=== PATIENT | female | born 1995 | race Caucasian/White ===

== ENCOUNTER 2017-10-19 08:41 | Inpatient (IN) | payer MEDICAID ==
[~2017-10-19] VITALS: Ht 149.9 cm; Wt 46.1 kg
[2017-10-19 09:31] LABS: BASOPHILS % (AUTO) 0.7 % (0.0-2.0); EOSINOPHILS % (AUTO) 0.1 % (1.0-6.0); HEMATOCRIT 34.2 % (36-46); HEMOGLOBIN 10.8 g/dL (12.0-16.0); LYMPHOCYTES # (AUTO) 1.9 K/uL (1.0-4.8); LYMPHOCYTES % (AUTO) 21.3 % (22.0-44.0); MEAN CORPUSCULAR HEMOGLOBIN 20.4 pg (26.0-34.0); MEAN CORPUSCULAR HGB CONC 31.6 G/dL (31.0-37.0); MEAN CORPUSCULAR VOLUME 65 fL (80-100); MONOCYTES # (AUTO) 0.5 K/uL (0.1-1.0); MONOCYTES % (AUTO) 5.5 % (2.0-9.0); NEUTROPHILS # (AUTO) 6.5 K/uL (1.8-7.7); NEUTROPHILS % (AUTO) 72.4 % (40.0-70.0); PLATELET COUNT (AUTO) 252 K/uL (150-450); RED CELL DISTRIBUTION WIDTH 17.2 % (11.5-14.5)
[2017-10-19 09:35] LABS: AMPHET/METH SCREEN,URINE NEGATIVE (NEGATIVE); BARBITURATE SCREEN, URINE NEGATIVE (NEGATIVE); BENZODIAZEPINES SCREEN,URINE NEGATIVE (NEGATIVE); CANNABINOID SCREEN,URINE POSITIVE (NEGATIVE); COCAINE SCREEN,URINE NEGATIVE (NEGATIVE); METHADONE SCREEN, URINE NEGATIVE (NEGATIVE); OPIATE SCREEN,URINE NEGATIVE (NEGATIVE)
[2017-10-19 09:41] LABS: APPEARANCE,URINE CLOUDY (CLEAR); BILIRUBIN,URINE NEGATIVE (NEGATIVE); GLUCOSE, URINE (UA) NEGATIVE (NEGATIVE); KETONES,URINE TRACE mg/dL (NEGATIVE); LEUKOCYTE ESTERASE ,URINE SMALL (NEGATIVE); NITRATE,URINE NEGATIVE (NEGATIVE); OCCULT BLOOD,URINE LARGE (NEGATIVE); PHENCYCLIDINE SCREEN,URINE NEGATIVE (NEGATIVE); PROTEIN,URINE SEE CONFIRM (NEGATIVE); UROBILINOGEN,URINE 0.2 mg/dL (<=1.0)
[2017-10-19 09:42] LABS: ANION GAP 13 mmol/L (8-16); CALCIUM, TOTAL 8.7 mg/dL (8.8-10.5); CARBON DIOXIDE 22 mmol/L (22-29); CHLORIDE 106 mmol/L (98-107); CREATININE 0.57 mg/dL (0.60-1.30); GLOMERULAR FILTR. RATE CALC > 60 mL/min (>60); GLUCOSE,RANDOM 104 mg/dL (70-110); POTASSIUM 3.8 mmol/L (3.5-5.1); SODIUM SERUM 141 mmol/L (136-145); UREA NITROGEN, BLOOD 6 mg/dL (7-18)
[2017-10-19 09:43] LABS: SULFOSALICYLIC ACID,URINE 2+ (Negative)
[2017-10-19 09:45] LABS: ALANINE AMINOTRANSFERASE 19 U/L (12-78); ALBUMIN 4.5 g/dL (3.4-5.0); ALKALINE PHOSPHATASE 67 U/L (46-116); ASPARTATE AMINOTRANSFERASE 24 U/L (15-37); BILIRUBIN,TOTAL 0.3 mg/dL (0.1-1.0); TOTAL PROTEIN, SERUM 8.4 g/dL (6.4-8.2)
[2017-10-19 09:47] LABS: BACTERIA,URINE None Seen /HPF (None Seen); RBC,URINE Full Field /HPF (0-2); SQUAMOUS EPITHELIAL CELL,UR Rare /LPF (None Seen); WBC,URINE 0-2 /HPF (0-5)
[2017-10-19] MEDS ORDERED: HALOPERIDOL 5 MG TABLET PO PRN (10:00)
[2017-10-19] MEDS ORDERED: ZOLPIDEM TARTRATE 10 MG TABLET PO PRN (10:00)
[2017-10-19] MEDS ORDERED: LORazepam 2 MG TABLET PO PRN (10:00)
[2017-10-19 10:04] LABS: PLATELET MORPHOLOGY COMMENT NORMAL; SALICYLATE 1.7 mg/dL (2.8-20.0)
[2017-10-19] MEDS ORDERED: LORazepam 2 MG/ML VIAL IM ONE (10:15)
[2017-10-19 10:45] LABS: FREE T4 (FREE THYROXINE) 1.14 ng/dL (0.76-1.46)
[2017-10-19] MEDS ORDERED: ACETYLCYSTEINE IV ONE ×4 (10:45→16:00)
[2017-10-19] MEDS ORDERED: DEXTROSE 5% IV ONE ×4 (10:45→16:00)
[2017-10-19] MEDS ORDERED: WATER IV ONE ×4 (10:45→16:00)
[2017-10-19 10:50] LABS: ACETAMINOPHEN 221 mcg/mL (10-30)
[2017-10-19] MEDS ORDERED: 0.9% SODIUM CHLORIDE 10 ML SYRINGE IVP PRN (11:45)
[2017-10-19] MEDS ORDERED: ONDANSETRON HCL 4 MG/2 ML VIAL IVP ONE (12:45)
[2017-10-19] MEDS ORDERED: MAGNESIUM HYDROXIDE SUSPENSION 30 ML UDCUP PO PRN (12:45)
[2017-10-19] MEDS ORDERED: SODIUM CHLORIDE 0.9% 1,000 ML IV ONE (12:45)
[2017-10-19] MEDS ORDERED: LORazepam 2 MG/ML VIAL IVP ONE (14:15)
[2017-10-19 20:00] VITALS: BP 122/70
[2017-10-19] MEDS ORDERED: INFLUENZA VIRUS VACCINE QVS 2017-18 (3YR+)/PF 60 MCG/0.5 ML SYRINGE IM ONE (20:15)
[2017-10-19] MEDS ORDERED: LORazepam 1 MG TABLET PO PRN (20:58)
[2017-10-19] MEDS: DOCUSATE SODIUM 100 MG CAPSULE PO SCH (21:00)
[2017-10-20] VITALS (7 sets, daily range): BP systolic 111–124; BP diastolic 67–81
[2017-10-20 08:25] LABS: ALANINE AMINOTRANSFERASE 17 U/L (12-78); ALBUMIN 3.8 g/dL (3.4-5.0); ALKALINE PHOSPHATASE 59 U/L (46-116); ASPARTATE AMINOTRANSFERASE 23 U/L (15-37); BILIRUBIN,TOTAL 0.7 mg/dL (0.1-1.0); TOTAL PROTEIN, SERUM 7.4 g/dL (6.4-8.2)
[2017-10-20 08:27] LABS: ALANINE AMINOTRANSFERASE 21 U/L (12-78); ALBUMIN 3.7 g/dL (3.4-5.0); ALKALINE PHOSPHATASE 56 U/L (46-116); ANION GAP 13 mmol/L (8-16); ASPARTATE AMINOTRANSFERASE 22 U/L (15-37); BILIRUBIN,TOTAL 0.7 mg/dL (0.1-1.0); CALCIUM, TOTAL 8.3 mg/dL (8.8-10.5); CARBON DIOXIDE 21 mmol/L (22-29); CHLORIDE 103 mmol/L (98-107); CREATININE 0.48 mg/dL (0.60-1.30); GLOMERULAR FILTR. RATE CALC > 60 mL/min (>60); GLUCOSE,RANDOM 89 mg/dL (70-110); POTASSIUM 3.2 mmol/L (3.5-5.1); PROTHROMBIN TIME 10.9 SEC (9.4-11.6); SODIUM SERUM 137 mmol/L (136-145); TOTAL PROTEIN, SERUM 7.3 g/dL (6.4-8.2); UREA NITROGEN, BLOOD 4 mg/dL (7-18)
[2017-10-20 08:42] LABS: ACETAMINOPHEN < 2 mcg/mL (10-30)
[2017-10-20] MEDS: DOCUSATE SODIUM 100 MG CAPSULE PO SCH ×2 (09:23→20:19)
[2017-10-20] MEDS: PANTOPRAZOLE SODIUM 40 MG DR TABLET PO SCH (09:23)
[2017-10-20 09:52] LABS: BASOPHILS % (AUTO) 0.5 % (0.0-2.0); EOSINOPHILS % (AUTO) 0.4 % (1.0-6.0); HEMATOCRIT 31.5 % (36-46); LYMPHOCYTES # (AUTO) 1.6 K/uL (1.0-4.8); LYMPHOCYTES % (AUTO) 23.9 % (22.0-44.0); MEAN CORPUSCULAR HEMOGLOBIN 20.5 pg (26.0-34.0); MEAN CORPUSCULAR HGB CONC 31.8 G/dL (31.0-37.0); MEAN CORPUSCULAR VOLUME 65 fL (80-100); MONOCYTES # (AUTO) 0.4 K/uL (0.1-1.0); MONOCYTES % (AUTO) 6.6 % (2.0-9.0); NEUTROPHILS # (AUTO) 4.6 K/uL (1.8-7.7); NEUTROPHILS % (AUTO) 68.6 % (40.0-70.0); PLATELET COUNT (AUTO) 202 K/uL (150-450); RED BLOOD CELL COUNT(AUTO) 4.86 MIL/uL (4.00-5.20); RED CELL DISTRIBUTION WIDTH 16.7 % (11.5-14.5)
[2017-10-20] MEDS ORDERED: LORazepam 1 MG TABLET PO PRN (12:00)
[2017-10-20] MEDS: SERTRALINE HCL 50 MG TABLET PO SCH (15:54)
[2017-10-20] MEDS: IBUPROFEN 400 MG TABLET PO PRN (17:17)
[2017-10-20] MEDS: ZOLPIDEM TARTRATE 5 MG TABLET PO PRN (20:22)
[2017-10-21 04:15] VITALS: BP 122/73
[2017-10-21 07:41] VITALS: BP 121/79
[2017-10-21] MEDS: DOCUSATE SODIUM 100 MG CAPSULE PO SCH ×2 (08:23→20:34)
[2017-10-21] MEDS: SERTRALINE HCL 50 MG TABLET PO SCH (08:24)
[2017-10-21] MEDS: PANTOPRAZOLE SODIUM 40 MG DR TABLET PO SCH (08:24)
[2017-10-21] MEDS: IBUPROFEN 400 MG TABLET PO PRN (11:03)
[2017-10-21 13:38] VITALS: BP 118/70
[2017-10-21 15:30] VITALS: BP 123/78
[2017-10-21 19:15] VITALS: BP 127/75
[2017-10-21] MEDS: ZOLPIDEM TARTRATE 5 MG TABLET PO PRN (22:22)
[2017-10-21 23:30] VITALS: BP 116/75
[2017-10-22 05:00] VITALS: BP 123/71
[2017-10-22] MEDS: SERTRALINE HCL 50 MG TABLET PO SCH (07:52)
[2017-10-22] MEDS: PANTOPRAZOLE SODIUM 40 MG DR TABLET PO SCH (07:52)
[2017-10-22] MEDS: DOCUSATE SODIUM 100 MG CAPSULE PO SCH (07:52)
[2017-10-22 08:02] VITALS: BP 155/78
[2017-10-22] MEDS ORDERED: SERT50TA12 PO (12:04)
[2017-10-22 12:23] VITALS: BP 121/77
== END 2017-10-22 12:50 | disposition home or self-care (01) | DRG 812 ==
LOC: EMS 08:43 → ICU 16:32 → 6N 10-20 19:00
PROVIDERS: ADMIT Internal Medicine; ATTEND Internal Medicine
DX: T39.1X2A Poisoning by 4-Aminophenol derivatives, intentional self-harm, initial encounter (principal); Z78.1 Physical restraint status; F32.9 Major depressive disorder, single episode, unspecified; F12.90 Cannabis use, unspecified, uncomplicated; E87.6 Hypokalemia; D64.9 Anemia, unspecified; Y90.7 Blood alcohol level of 200-239 mg/100 ml; F10.129 Alcohol abuse with intoxication, unspecified; Y92.098 Other place in other non-institutional residence as the place of occurrence of the external cause
CPT/HCPCS: 84439; 84443; 87081; 93005; 96365; 96366; 96372; 96375; 99291; G0480; G0481; J0132; J2060; J2405; J7030; J7060